=== PATIENT | female | born 1945 | race Caucasian/White ===

== ENCOUNTER 2017-02-12 13:37 | Emergency (ER) | payer MEDICARE, BC ==
[2017-02-12 14:49] VITALS: BP 108/59
--- NOTE | 2017-02-12 15:18 | EDM.PDOC ---
ED HPI GENERAL MEDICAL PROBLEM - General Chief Complaint: Gastrointestinal Problem Stated Complaint: ? [id number] Time Seen by Provider: 02/12/17 15:13 Source of Information: Reports: Patient History Limitations: Reports: No Limitations - History of Present Illness INITIAL COMMENTS - FREE TEXT/NARRATIVE: 71 yo female presents with constipation. States that she took a miralax on and since had had loose stools but feels like " there is a knot in there that everything is running around." states now she is having RLQ cramping intermittently. No other complaints Onset: Gradual Onset Date: 02/10/17 Duration: Getting Worse Location: Reports: Abdomen, Pelvis Quality: Reports: Ache, Burning Severity: Moderate Improves with: Reports: None Worsens with: Reports: Other (defication) Associated Symptoms: Reports: No Other Symptoms Pelvic Pain Score (Numeric/FACES): 2 - Related Data Allergies Allergy/AdvReac Type Severity Reaction Status Date / Time No Known Allergies Allergy Verified 02/12/17 14:42 Home Meds: Home Meds Aspirin 325 mg PO DAILY 01/13/17 [History] Lisinopril [Lisinopril] 5 mg PO DAILY 01/13/17 [History] Naproxen Sodium [Aleve] 1 - 2 tab PO ASDIRECTED PRN 01/13/17 [History] Simvastatin [Zocor] 20 mg PO DAILY 01/13/17 [History] Past Medical History HEENT History: Reports: Cataract, Impaired Vision Other HEENT History: WEARS CORRECTIVE LENS Cardiovascular History: Reports: Arrhythmia Gastrointestinal History: Reports: Diverticulosis VP PUBLIC RELATIONS History: Reports: Musculoskeletal History: Reports: Arthritis, Fracture Other Musculoskeletal History: FRACTURE OF RIGHT WRIST X2 Hematologic History: Reports: Anemia, Iron Deficiency - Infectious Disease History Infectious Disease History: Reports: Measles, Mumps, Pertussis (Whooping Cough) - Past Surgical History HEENT Surgical History: Reports: Cataract Surgery Cardiovascular Surgical History: Reports: Other (See Below) Other Cardiovascular Surgeries/Procedures: ANGIOGRAM GI Surgical History: Reports: Appendectomy, Cholecystectomy, Colonoscopy, EGD Musculoskeletal Surgical History: Reports: None Social & Family History - Tobacco Use Smoking Status *Q: Current Some Day Smoker Years of Tobacco use: 40 Packs/Tins Daily: 1 Used Tobacco, but Quit: No Second Hand Smoke Exposure: Yes - Caffeine Use Caffeine Use: Reports: Coffee Other Caffeine Use: 4 CUPS COFFEE DAILY - Recreational Drug Use Recreational Drug Use: No ED ROS GENERAL - Review of Systems Review Of Systems: ROS reveals no pertinent complaints other than HPI. ED EXAM, GI/ABD - Physical Exam Exam: See Below Exam Limited By: No Limitations General Appearance: Alert, WD/WN, No Apparent Distress Head: Atraumatic, Normocephalic Neck: Normal Inspection, Supple, Non-Tender, Full Range of Motion Respiratory/Chest: No Respiratory Distress, Lungs Clear, Normal Breath Sounds, No Accessory Muscle Use, Chest Non-Tender Cardiovascular: Normal Peripheral Pulses, Regular Rate, Rhythm, No Edema, No Gallop, No JVD, No Murmur, No Rub GI/Abdominal Exam: Normal Bowel Sounds, Soft, No Organomegaly, No Distention, No Abnormal Bruit, No Mass, Pelvis Stable, Tender (RLQ), Other (Impaction to rectum, disimpaction of firm brown stool) Neurological: Alert, Oriented, CN II-XII Intact, Normal Cognition, Normal Gait, No Motor/Sensory Deficits Skin Exam: Warm, Dry, Intact, Normal Color, No Rash Course - Vital Signs Last Recorded V/S: Last Vital Signs Temp 99 F 02/12/17 14:43 Pulse 109 H 02/12/17 14:43 Resp 18 02/12/17 14:43 BP 108/59 L 02/12/17 14:43 Pulse Ox 99 02/12/17 14:43 - Orders/Labs/Meds Orders: Active Orders 24 hr Category Date Time Status Abdomen 2V AP Flat Upright [CR] Urgent Exams 02/12/17 15:18 Taken Meds: Medications Discontinued Medications Generic Name Dose Route Start Last Admin Trade Name Ashok PRN Reason Stop Dose Admin Magnesium Citrate 300 ml 02/12/17 15:54 02/12/17 16:07 Citrate Of Magnesia PO 02/12/17 15:55 300 ml ONETIME ONE Administration - Re-Assessments/Exams Free Text/Narrative Re-Assessment/Exam: 02/12/17 17:19 Large golf- baseball sized stool eliminated. Pt states that she feels better. Departure - Departure Time of Disposition: 17:20 Disposition: Home, Self-Care 01 Condition: Good Clinical Impression: Constipation - Discharge Information Instructions: Constipation, Adult, [id number], Dehydration, Adult, Easy-to- Read Forms: ED Department Discharge Additional Instructions: Take metamucil daily and eat more vegetables to increase the fiber in your diet. Take a stool softener daily such as docusate. If needed, you may use miralax to help with the constipation. If you do not have bowel movement, get magnesium citrate to help you go. Return for any worsening symptoms. Follow up with your PCP in 1 week. - My Orders Last 24 Hours: My Active Orders 02/12/17 15:18 Abdomen 2V AP Flat Upright [CR] Urgent - Assessment/Plan Last 24 Hours: My Active Orders 02/12/17 15:18 Abdomen 2V AP Flat Upright [CR] Urgent
[2017-02-12] MEDS ORDERED: Magnesium Citrate Solution 296 ML Bottle PO ONE (15:54)
== END 2017-02-12 17:54 | disposition home or self-care (01) ==
LOC: DL.ED 13:37
DX: K59.00 Constipation, unspecified (principal); M19.90 Unspecified osteoarthritis, unspecified site; F17.210 Nicotine dependence, cigarettes, uncomplicated; Z86.2 Personal history of diseases of the blood and blood-forming organs and certain disorders involving the immune mechanism; Z98.49 Cataract extraction status, unspecified eye; Z90.49 Acquired absence of other specified parts of digestive tract; Z79.82 Long term (current) use of aspirin; Z79.899 Other long term (current) drug therapy
CPT/HCPCS: 74020; 99284; A9270; 99283

== ENCOUNTER 2018-07-14 11:54 | Emergency (ER) | payer MEDICARE, BC ==
[2018-07-14 11:45] VITALS: BP 131/76
--- NOTE | 2018-07-14 11:54 | EDM.PDOC ---
ED HPI GENERAL MEDICAL PROBLEM - General Stated Complaint: FELL-TRAUMA CODE AMBULANCE Time Seen by Provider: 07/14/18 11:36 Source of Information: Reports: Patient, EMS History Limitations: Reports: No Limitations - History of Present Illness INITIAL COMMENTS - FREE TEXT/NARRATIVE: HPI This 72 yo female patient was brought to the ED by [facility] due to a ground level fall and left hip pain. The patient reports she was at the vet with her 200 pound dog when the dog started to get away from her. The patient reports she let go of the leash and fell directly on her left hip and buttocks. The patient reports increased pain with movement of her left hip or leg. The patient denies hitting her head or any loss of consciousness Primary Survey Airway: open and patient Breathing: regular without additional effort Circulation: no major bleeding noted Deformity: no deformity noted Expose: as appropriate GCS: 15 Secondary Survey HEENT Head: normocephalic, atraumatic Eyes: PERRLA Ears: no obvious trauma, canals open Nose: no deformity, no bleeding, mucosa moist Mouth: no noted trauma Throat: no abnormalities noted Neck: Subtle, normal range of motion no cervical tenderness Chest: lung sounds were clear and equal bilaterally, Heart was RRR, no murmurs, rubs or gallop Abdomen: normoactive bowel sounds, no organomegally, no tenderness on palpation Pelvis: Left hip and pelvic pain Extremities: The patient reports increased left hip pain and tenderness with palpation. Provider Trauma Notes Arrival Time: 1136 GCS on Arrival: 15 C-collar present on arrival: No GCS at 1 hour: Off spine board: NA Time primary survey: 1140 Time secondary survey: 1145 Time C-collar cleared: NA By: Time removed: GCS on discharge: Onset: Today Duration: Minutes:, Constant Location: Reports: Lower Extremity, Left (Hip and thigh) Quality: Reports: Ache, Dull Severity: Moderate Improves with: Reports: None Worsens with: Reports: Movement Context: Reports: Trauma (ground level fall) - Related Data Allergies Allergy/AdvReac Type Severity Reaction Status Date / Time No Known Allergies Allergy Verified 02/12/17 14:42 Home Meds: Home Meds Aspirin 325 mg PO DAILY 01/13/17 [History] Lisinopril 5 mg PO DAILY 01/13/17 [History] Naproxen Sodium [Aleve] 1 - 2 tab PO ASDIRECTED PRN 01/13/17 [History] Simvastatin [Zocor] 20 mg PO DAILY 01/13/17 [History] Past Medical History HEENT History: Reports: Cataract, Impaired Vision Other HEENT History: WEARS CORRECTIVE LENS Cardiovascular History: Reports: Arrhythmia Gastrointestinal History: Reports: Diverticulosis [employer]ER History: Reports: Musculoskeletal History: Reports: Arthritis, Fracture Other Musculoskeletal History: FRACTURE OF RIGHT WRIST X2 Hematologic History: Reports: Anemia, Iron Deficiency - Infectious Disease History Infectious Disease History: Reports: Measles, Mumps, Pertussis (Whooping Cough) - Past Surgical History HEENT Surgical History: Reports: Cataract Surgery Cardiovascular Surgical History: Reports: Other (See Below) Other Cardiovascular Surgeries/Procedures: ANGIOGRAM GI Surgical History: Reports: Appendectomy, Cholecystectomy, Colonoscopy, EGD Musculoskeletal Surgical History: Reports: None Social & Family History - Caffeine Use Caffeine Use: Reports: Coffee Other Caffeine Use: 4 CUPS COFFEE DAILY Review of Systems - Review of Systems Review Of Systems: ROS reveals no pertinent complaints other than HPI. ED EXAM, GENERAL - Physical Exam Exam: See Below Exam Limited By: No Limitations General Appearance: Alert, WD/WN, Moderate Distress Eye Exam: Bilateral Eye: EOMI, Normal Inspection, PERRL Ears: Normal External Exam, Normal Canal, Hearing Grossly Normal, Normal TMs Nose: Normal Inspection, Normal Mucosa, No Blood Throat/Mouth: Normal Inspection, Normal Lips, Normal Teeth, Normal Gums, Normal Oropharynx, Normal Voice, No Airway Compromise Head: Atraumatic, Normocephalic Neck: Normal Inspection, Supple, Non-Tender, Full Range of Motion Respiratory/Chest: No Respiratory Distress, Lungs Clear, Normal Breath Sounds, No Accessory Muscle Use, Chest Non-Tender Cardiovascular: Normal Peripheral Pulses, Regular Rate, Rhythm, No Edema, No Gallop, No JVD, No Murmur, No Rub GI/Abdominal: Normal Bowel Sounds, Soft, Non-Tender, No Organomegaly, No Distention, No Abnormal Bruit, No Mass (Female) Exam: Deferred Rectal (Female) Exam: Deferred Back Exam: Normal Inspection, Full Range of Motion, NT Extremities: Leg Pain (left hip and pelvis) Neurological: Alert, Oriented, CN II-XII Intact, Normal Cognition, Normal Reflexes, No Motor/Sensory Deficits Psychiatric: Normal Affect, Normal Mood Skin Exam: Warm, Dry, Intact, Normal Color, No Rash Lymphatic: No Adenopathy Course - Vital Signs Last Recorded V/S: Last Vital Signs Temp 36.7 C 07/14/18 11:44 Pulse 77 07/14/18 11:44 Resp 18 07/14/18 11:44 BP 131/76 07/14/18 11:44 Pulse Ox 95 07/14/18 11:44 - Orders/Labs/Meds Labs: Laboratory Tests 07/14/18 07/14/18 Range/Units 11:43 11:43 WBC 4.2 L (5.0-10.0) 10^3/uL RBC 4.50 (4.2-5.4) 10^6/uL Hgb 13.2 (12.0-16.0) g/dL Hct 38.6 (37.0-47.0) % MCV 85.8 D (80-100) fL MCH 29.3 (27.0-34.0) pg MCHC 34.2 (33.0-35.0) g/dL Plt Count 253 D (150-450) 10^3/uL Neut % (Auto) 57.1 (42.2-75.2) % Lymph % (Auto) 28.9 (20.5-50.1) % Turner % (Auto) 11.6 H (2-8) % Eos % (Auto) 1.4 (1.0-3.0) % Baso % (Auto) 1.0 (0.0-1.0) % Sodium 130 L (135-145) mmol/L Potassium 4.0 (3.6-5.0) mmol/L Chloride 99 L (101-111) mmol/L Carbon Dioxide 19.0 L (21.0-31.0) mmol/L Anion Gap 16.0 BUN 12 (7-18) mg/dL Creatinine 0.9 (0.6-1.3) mg/dL Est Cr Clr Drug Dosing 50.17 mL/min Estimated GFR (MDRD) > 60 BUN/Creatinine Ratio 13.33 Glucose 110 H (74-105) mg/dL Calcium 8.8 (8.4-10.2) mg/dl Total Bilirubin 0.7 (0.2-1.0) mg/dL AST 24 (10-42) IU/L ALT 18 (10-60) IU/L Alkaline Phosphatase 81 (42-121) IU/L Total Protein 6.6 L (6.7-8.2) g/dl Albumin 3.7 (3.2-5.5) g/dl Globulin 2.9 Albumin/Globulin Ratio 1.28 Meds: Medications Discontinued Medications Generic Name Dose Route Start Last Admin Trade Name Freq PRN Reason Stop Dose Admin Morphine Sulfate 2 mg 07/14/18 12:41 07/14/18 12:52 Morphine IVPUSH 07/14/18 12:42 2 mg ONETIME ONE Administration Morphine Sulfate 2 mg 07/14/18 13:43 07/14/18 13:46 Morphine IVPUSH 07/14/18 13:44 2 mg ONETIME ONE Administration Departure - Departure Time of Disposition: 12:38 Disposition: DC/Tfer to Acute Hospital 02 Condition: Fair Clinical Impression: Closed left hip fracture Qualifiers: Encounter type: initial encounter Qualified Code(s): S72.002A - Fracture of unspecified part of neck of left femur, initial encounter for closed fracture - Discharge Information *PRESCRIPTION DRUG MONITORING PROGRAM REVIEWED*: Not Applicable *COPY OF PRESCRIPTION DRUG MONITORING REPORT IN PATIENT RANDY: Not Applicable Forms: Interfacility Transfer EMTALA Care Plan Goals: Discussed the patient's history, examination and x-ray results with Dr. Kline. Dr. Kline accepted the patient for continued evaluation and management at [facility] in [place]. The patient will be transported by [facility].
[2018-07-14 12:10] LABS: CHLORIDE,CL 99 mmol/L (101-111); SODIUM,NA 130 mmol/L (135-145)
--- NOTE | 2018-07-14 12:10 | CR ---
Clinical history: 72-year-old female left hip pain (fall). Interpretation: Abnormal. Age/gender appropriate bone mineral density, however .... mildly impacted (anatomically aligned) acute intertrochanteric fracture proximal left femur. Symmetric spacing hip joints without arthritic degenerative change, and.... no sign of other pelvic or contralateral right hip fracture/dislocation. No foreign bodies. Chronic arthritic changes lower lumbar spine.
[2018-07-14] MEDS ORDERED: Morphine 2 MG/ML Syringe IVPUSH ONE ×2 (12:41→13:43)
== END 2018-07-14 13:52 ==
LOC: DL.ED 11:54
DX: S72.002A Fracture of unspecified part of neck of left femur, initial encounter for closed fracture (principal); Z79.82 Long term (current) use of aspirin; Z79.899 Other long term (current) drug therapy; W18.39XA Other fall on same level, initial encounter
CPT/HCPCS: 36415; 80053; 85025; 96374; 96376; 99285; J2270

== ENCOUNTER 2022-04-27 10:17 | Emergency (ER) | payer MEDICARE, BC ==
[2022-04-27 10:26] VITALS: BP 136/73; PULSE 108
[2022-04-27] MEDS ORDERED: Sodium Chloride 0.9% 10 ML Syringe FLUSH PRN (10:49)
[2022-04-27] MEDS ORDERED: Sodium Chloride 0.9% 1,000 ML IV ONE (11:39)
[2022-04-27] MEDS ORDERED: cefTRIAXone 2 GM in Sodium Chloride 0.9% 100 ML IV ONE (11:39)
[2022-04-27] MEDS ORDERED: Azithromycin 500 MG in Sodium Chloride 0.9% 250 ML IV ONE (11:40)
[2022-04-27 12:03] LABS: CORONAVIRUS COVID-19 NAA NEGATIVE (NEGATIVE)
[2022-04-27] MEDS ORDERED: Ketorolac 30 MG/ML SDV IVPUSH ONE (12:06)
[2022-04-27 12:39] LABS: ANION GAP 15.1 mEq/L (7-13); CHLORIDE,CL 97 mmol/L (98-107); SODIUM,NA 130 mmol/L (136-145)
[2022-04-27 12:54] LABS: ESTIMATED GFR 64 mL/min (>=60)
[2022-04-27] MEDS ORDERED: Potassium Chloride 10 MEQ Tab.ER PO ONE (13:09)
[2022-04-27] MEDS ORDERED: Potassium Chloride 10 MEQ Tab.ER ONE (15:18)
== END 2022-04-27 18:50 ==
LOC: DL.ED 10:17
DX: A41.9 Sepsis, unspecified organism (principal); J18.9 Pneumonia, unspecified organism; D70.8 Other neutropenia; M19.90 Unspecified osteoarthritis, unspecified site; Z20.822 Contact with and (suspected) exposure to COVID-19
CPT/HCPCS: 0240U; 36415; 51702; 71045; 80053; 81001; 83605; 83735; 83880; 84145; 84484; 85025; 86140; 87040; 87077; 93005; 96365; 96367; 96375; 99285; A9270; J0456; J0696; J1885; J3490; J7030; J7050